=== PATIENT | male | born 1990 | race Caucasian/White ===

== ENCOUNTER 2017-03-21 09:05 | Emergency (ER) | payer SELFPAY ==
[~2017-03-21] VITALS: Ht 175.3 cm; Wt 70.0 kg
[2017-03-21] MEDS ORDERED: KETOROLAC 60MG/2ML VIAL IM ONE (11:45)
[2017-03-21 12:34] VITALS: BP 114/65
== END 2017-03-21 12:47 | disposition home or self-care (01) ==
LOC: ER 09:15
DX: M25.512 Pain in left shoulder (principal); M25.552 Pain in left hip; R03.0 Elevated blood-pressure reading, without diagnosis of hypertension; V22.4XXA Motorcycle driver injured in collision with two- or three-wheeled motor vehicle in traffic accident, initial encounter; Y93.89 Activity, other specified; Y92.410 Unspecified street and highway as the place of occurrence of the external cause
CPT/HCPCS: 73000; 73030; 73502; 96372; 99284; J1885